=== PATIENT | female | born 1975 | race Caucasian/White ===

== ENCOUNTER 2020-12-28 10:54 | Emergency (ER) | payer OTHER ==
[~2020-12-28] VITALS: Ht 167.6 cm; Wt 76.5 kg
[2020-12-28 11:10] LABS: ABSOLUTE BASOPHILS 0.1 thou/uL (0.0-0.2); ABSOLUTE LYMPHOCYTES 1.4 thou/uL (0.8-5.3); ABSOLUTE MONOCYTES 0.5 thou/uL (0.0-1.2); ABSOLUTE NEUTROPHILS 5.2 thou/uL (1.6-8.1); BASOPHILS 0.9 %; EOSINOPHILS 0.6 %; HEMATOCRIT 37.7 % (37.0-47.0); HEMOGLOBIN 12.7 gm/dL (12.0-15.0); LYMPHOCYTES 19.5 %; MCH 31.1 pg (26.0-34.0); MCHC 33.6 g/dL (28.0-37.0); MCV 92.5 fL (80.0-100.0); MONOCYTES 7.3 %; MPV 7.3 fl. (7.2-11.1); NUCLEATED RBCS 0 /100WBC; PLATELET COUNT* 390 thou/uL (150-400); POLYS 71.7 %; RBC 4.07 mil/uL (4.20-5.00); RDW-CV 13.2 % (10.5-14.5); WBC 7.3 thou/uL (4.0-11.0)
[2020-12-28] MEDS ORDERED: ADDERALL 10 MG10 MG PO (11:10)
[2020-12-28] MEDS ORDERED: LEXAPRO20 MG PO (11:10)
[2020-12-28] MEDS ORDERED: PROPRANOLOL 20M20 M1 (11:10)
[2020-12-28 11:24] LABS: CALCIUM 8.4 mg/dL (8.5-10.1); POTASSIUM 4.3 mmol/L (3.5-5.1)
[2020-12-28 11:28] LABS: TOTAL BILIRUBIN 0.3 mg/dL (<0.1-1.0); TOTAL PROTEIN 6.8 g/dL (6.4-8.2)
[2020-12-28 11:29] LABS: SALICYLATE < 2.8 mg/dL (2.8-20.0)
[2020-12-28 11:30] LABS: ACETAMINOPHEN < 2 ug/mL (10-30); ALCOHOL < 10 mg/dL (<10)
[2020-12-28 12:31] LABS: URINE BILIRUBIN NEGATIVE (Negative); URINE BLOOD NEGATIVE (Negative); URINE CLARITY CLEAR; URINE COLOR YELLOW; URINE GLUCOSE-RANDOM NEGATIVE (Negative); URINE KETONES NEGATIVE (Negative); URINE LEUKOCYTES-REFLEX NEGATIVE (Negative); URINE NITRITE-REFLEX NEGATIVE (Negative); URINE PROTEIN NEGATIVE (Negative); URINE SPECIFIC GRAVITY >= 1.030 (1.005-1.030); URINE UROBILINOGEN 0.2 E.U./dl (0.2-1.0)
[2020-12-28 12:38] LABS: AMP/METHAMP POSITIVE (Negative); BARBITURATES Negative (Negative); BENZODIAZEPINES Negative (Negative); COCAINE Negative (Negative); METHADONE Negative (Negative); OPIATES Negative (Negative); PCP Negative (Negative); THC POSITIVE (Negative)
[2020-12-30 12:11] VITALS: BP 124/68
== END 2020-12-30 12:12 | disposition home or self-care (01) ==
LOC: M.ERS 10:54
PROVIDERS: Emergency Medicine Emergency Medical Services
DX: R45.851 Suicidal ideations (principal); Z20.822 Contact with and (suspected) exposure to COVID-19; F31.9 Bipolar disorder, unspecified